=== PATIENT | female | born 1970 | race Caucasian/White ===

== ENCOUNTER 2017-03-23 19:11 | Emergency (ER) | payer SELFPAY ==
[~2017-03-23] VITALS: Ht 165.1 cm; Wt 73.0 kg
[~2017-03-23 19:11] MED LIST: CEPH-460 PO; PRED20 PO; VENTAER INH
[2017-03-23 19:20] VITALS: BP 178/115; PULSE 85; RESP 16; TEMP 98.3; O2SAT 96
--- NOTE | 2017-03-23 19:51 | PD ---
Physical Exam Date Seen by Provider: Mar 23, 2017 Time Seen by Provider: 19:49 Narrative 46 yo female here for evaluation of leg pain. 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 has bumps in legs and arms. Possibly exposed to TB per patient, she found out this today. Vitals stable in triage. Awaiting bed placement Data Data Last Documented VS Vital Signs Date Time Temp Pulse Resp B/P (MAP) Pulse Ox O2 Delivery O2 Flow Rate FiO2 03/23/17 19:20 98.3 85 16 178/115 (136) 96 Room Air [facility] Medical Record Reviewed: Yes Supervised Visit with BIBI: No Jose Guadalupe Huertas Mar 23, 2017 19:51
[2017-03-23] MEDS ORDERED: BACT800T5 PO (23:23)
[2017-03-23] MEDS ORDERED: CEPH-460 PO (23:23)
--- NOTE | 2017-03-23 23:24 | PD ---
HPI Chief Complaint: Skin Problem Time Seen by Provider: 23:17 Travel History International Travel<30 days: No Contact w/Intl Traveler<30days: No Traveled to known affect area: No History of Present Illness HPI 46-year-old female presents to emergency department for evaluation of multiple scabbed lesions on her extremities. Patient states she first noticed these couple weeks ago with pain insect bit her foot. She then developed more wounds. She began to scratch them. She feels as though she may have a skin infection. She denies any new contacts. No recent illnesses, fever, chills. She also believes she may been exposed to TB. She used a telephone today and following her phone conversation, the man who use to prior to her told her that he has had TB. She denies a cough or chest congestion. No hemoptysis. No weight loss. No night sweats. No other symptoms to report. PFSH Past Medical History Asthma: Yes Cardiovascular Problems: Yes (HTN) Diminished Hearing: No Hepatitis: Yes (Hep C) Hiatal Hernia: Yes Respiratory: Yes (Asthma) Immunizations Current: No Tetanus Vaccination: Unknown Influenza Vaccination: No ?: Not LMP: 03/05/17 Tubal Ligation: Yes Past Surgical History Abdominal Surgery: Yes (hernia repair) Social History Alcohol Use: Yes Tobacco Use: Yes (pack a day ) Substance Use: Yes (Pt denied any drug use, only etoh) Allergies-Medications (Allergen,Severity, Reaction): Coded Allergies: No Known Allergies (Unverified , 06/27/16) Reported Meds & Prescriptions Reported Meds & Active Scripts Active Keflex (Cephalexin) 500 Mg Cap 500 Mg PO Q6H 5 Days Bactrim DS (Sulfamethoxazole-Trimethoprim) 800-160 Mg Tab 1 Tab PO BID Ventolin Hfa 18 GM Inh (Albuterol Sulfate) 90 Mcg/Act Aer 2 Puff INH Q4H PRN Keflex (Cephalexin) 500 Mg Cap 500 Mg PO Q6H 7 Days Prednisone 20 Mg Tab 40 Mg PO DAILY 5 Days Review of Systems Except as stated in HPI: all other systems reviewed are Neg Physical Exam Narrative GENERAL: Unkempt female patient, in no acute distress SKIN: Focused skin assessment warm/dry. Multiple centimeter and subcentimeter scabbed lesions on the lower extremity and arms. The patient does have a couple on her face. HEAD: Atraumatic. Normocephalic. EYES: Pupils equal and round. No scleral icterus. No injection or drainage. ENT: No nasal bleeding or discharge. Mucous membranes pink and moist. NECK: Trachea midline. No JVD. CARDIOVASCULAR: Regular rate and rhythm. No murmur appreciated. RESPIRATORY: No accessory muscle use. Clear to auscultation. Breath sounds equal bilaterally. GASTROINTESTINAL: Abdomen soft, non-tender, nondistended. Hepatic and splenic margins not palpable. MUSCULOSKELETAL: No obvious deformities. No clubbing. No cyanosis. No edema. NEUROLOGICAL: Awake and alert. No obvious cranial nerve deficits. Motor grossly within normal limits. Normal speech. Data Data Last Documented VS Vital Signs Date Time Temp Pulse Resp B/P (MAP) Pulse Ox O2 Delivery O2 Flow Rate FiO2 03/23/17 23:32 03/23/17 19:20 98.3 85 16 96 Room Air [facility] Medical Decision Making Medical Screen Exam Complete: Yes Emergency Medical Condition: Yes Medical Record Reviewed: Yes Differential Diagnosis Superficial skin infection versus can lesions versus contact dermatitis versus folliculitis versus insect bites( Narrative Course 46 year-old female presents to emergency department for evaluation. Patient appears without distress. She does have multiple scabbed lesions, consistent with superficial skin infection. Patient be started on oral antibiotic. She is counseled on care. I have advised follow-up with the [facility] department if she does feel she has been exposed to TB. She is asymptomatic at this time and her possible exposure was today. Patient verbalizes understanding. She'll be discharged at this time. Diagnosis Primary Impression: Skin lesion, infected Additional Impressions: Skin lesions Skin lesion, superficial Referrals: Primary Care Physician Patient Instructions: Acute Wound Care (DC), General Instructions Additional Instructions: Avoid scratching or picking the lesions Follow-up with a primary care provider Keep the areas clean Return immediately to the emergency department with any acute worsening of symptoms Follow up with the health department for ppd if you think you have been exposed to TB Med/Other Pt SpecificInfo: Prescription(s) given Scripts Cephalexin (Keflex) 500 Mg Cap 500 MG PO Q6H for Infection for 5 Days, CAP 0 Refills Prov: Juliana Justin 03/23/17 Sulfamethoxazole-Trimethoprim (Bactrim DS) 800-160 Mg Tab 1 TAB PO BID for Infection, #20 TAB 0 Refills Prov: Juliana Justin 03/23/17 Disposition: 01 DISCHARGE HOME Condition: Stable Juliana Justin Mar 23, 2017 23:24
== END 2017-03-23 23:46 | disposition home or self-care (01) ==
LOC: NEPD 19:11
DX: L98.9 Disorder of the skin and subcutaneous tissue, unspecified (principal); J45.909 Unspecified asthma, uncomplicated; I10 Essential (primary) hypertension; F17.200 Nicotine dependence, unspecified, uncomplicated; Z86.19 Personal history of other infectious and parasitic diseases; Z79.899 Other long term (current) drug therapy
CPT/HCPCS: 99284

== ENCOUNTER 2017-10-17 11:51 | Emergency (ER) | payer OTHER ==
[~2017-10-17 11:51] MED LIST changes: +BACT800T5 PO
[2017-10-17 12:31] VITALS: BP 226/118; PULSE 80; RESP 20; TEMP 98.4; O2SAT 98; O2SAT 99
[2017-10-17] MEDS ORDERED: LISI40TA PO ×2 (14:12→14:33)
--- NOTE | 2017-10-17 14:15 | PD ---
HPI Chief Complaint: Skin Problem Time Seen by Provider: 14:11 Travel History International Travel<30 days: No Contact w/Intl Traveler<30days: No Traveled to known affect area: No History of Present Illness HPI 47-year-old female presents to the emergency department with complaint of scattered, scabbed rash to her scalp, left ear, right arm, chest 4 days. Says it itches, lang and her left ear is swollen and oozing. Says she is allergic to hair dye and last used it 3 weeks ago, but does not think that this rash is related to using hair dye. Denies new exposures to lotions, soaps, detergents, shampoos, perfumes, environmental exposures. Denies fever, vomiting. No others with similar symptoms. Has tried spray Lotrimin cream Lotrimin, and other [id number] creams with minimal relief of symptoms. Patient's blood pressure is elevated in the ER. She is requesting refill on her lisinopril 40 mg daily. Says she has been out for a couple weeks. Denies chest pain, shortness of breath, change in vision, syncope, vomiting. Also requesting a refill on her albuterol for her asthma. No primary care provider. Allergies to hair dye and bees. History of hypertension, polycystic kidney, hepatitis C, asthma. Reports history of MRSA. Has no other medical complaints. No other modifying factors or associated signs and symptoms. PFSH Past Medical History Asthma: Yes Cardiovascular Problems: Yes (HTN) Diminished Hearing: No Hepatitis: Yes (Hep C) Hiatal Hernia: Yes Hypertension: Yes Respiratory: Yes (Asthma) Immunizations Current: No Tetanus Vaccination: Unknown Influenza Vaccination: No ?: Not Tubal Ligation: Yes Past Surgical History Abdominal Surgery: Yes (hernia repair) Social History Alcohol Use: Yes (occasionally) Tobacco Use: Yes (pack every 3 days) Substance Use: No (Pt denied any drug use, only etoh) Allergies-Medications (Allergen,Severity, Reaction): Coded Allergies: No Known Allergies (Unverified Adverse Reaction, Unknown, 10/17/17) Reported Meds & Prescriptions Reported Meds & Active Scripts Active Lisinopril 40 Mg Tab 40 Mg PO DAILY Ventolin Hfa 18 GM Inh (Albuterol Sulfate) 90 Mcg/Act Aer 2 Puff INH Q4-6H PRN Clindamycin (Clindamycin HCl) 150 Mg Cap 450 Mg PO Q6H 10 Days Deltasone (Prednisone) 20 Mg Tab 40 Mg PO DAILY 4 Days start 10/18/2017 Ventolin Hfa 18 GM Inh (Albuterol Sulfate) 90 Mcg/Act Aer 2 Puff INH Q4H PRN Reported Lisinopril 40 Mg Tab 40 Mg PO DAILY Review of Systems Except as stated in HPI: all other systems reviewed are Neg Physical Exam Narrative GENERAL: Well-nourished, well-developed feet patient, in no acute distress; disheveled SKIN: Warm and dry. Generalized erythremic pimple-like rash to to left ear and around left ear, scalp, right upper extremity, chest; some areas appear excoriated. Left ear is erythematous, edematous and with purulent drainage noted. HEAD: Atraumatic. Normocephalic. EYES: Pupils equal and round. No scleral icterus. No injection or drainage. ENT: Mucosa pink and moist. Airway patent. NECK: Trachea midline. CARDIOVASCULAR: Regular rate and rhythm. No murmur appreciated. RESPIRATORY: No accessory muscle use. Breath sounds clear and equal bilaterally. No retractions or tachypnea. GASTROINTESTINAL: Abdomen soft, non-tender, nondistended. Positive bowel sounds. No hepato-splenomegaly, or palpable masses. No guarding. MUSCULOSKELETAL: No obvious deformities. No clubbing. No cyanosis. No edema. NEUROLOGICAL: Awake and alert. Oriented 3. No obvious cranial nerve deficits. Motor grossly within normal limits. Normal speech. PSYCHIATRIC: Appropriate mood and affect; insight and judgment normal. Data Data Last Documented VS Vital Signs Date Time Temp Pulse Resp B/P (MAP) Pulse Ox O2 Delivery O2 Flow Rate FiO2 10/17/17 15:16 177/105 (129) 10/17/17 12:31 98.4 80 20 98 Orders Orders Wound Culture And Gram Stain (10/17/17 14:25) Diphenhydramine (Benadryl) (10/17/17 14:30) Lisinopril (Prinivil) (10/18/17 09:00) Lisinopril (Prinivil) (10/17/17 14:30) Prednisone (Deltasone) (10/17/17 14:30) Clindamycin (Cleocin) (10/17/17 14:30) Ed Discharge Order (10/17/17 15:20) [facility] Medical Decision Making Medical Screen Exam Complete: Yes Emergency Medical Condition: Yes Medical Record Reviewed: Yes Differential Diagnosis Nonspecific rash and skin eruption, contact dermatitis, hives, cellulitis of left ear, scabies, bedbugs, MRSA, staph infection Narrative Course 47-year-old female with rash and nonspecific skin eruption and cellulitis of her left ear. She is afebrile and nontoxic-appearing. Blood pressure is elevated in the ER. She has been out of her lisinopril for a few weeks. She is also requesting a refill on her albuterol inhaler for her asthma. Clindamycin, Deltasone, Benadryl, lisinopril ordered. 1520: Blood pressure recheck 177/105. Lisinopril, Ventolin inhaler, Deltasone, clindamycin prescribed for home. Instructed patient to follow-up with apparatus operator. Instructed patient to follow up with primary care provider. Patient verbalizes understanding and agreement with treatment plan. Patient is medically cleared and stable for discharge. Discussed reasons to return to the emergency department. Patient agrees with treatment plan. The patients vital signs are stable and the patient is stable for outpatient follow-up and treatment. Patient discharged home, stable and in no acute distress. Diagnosis Primary Impression: Rash and nonspecific skin eruption Additional Impressions: Cellulitis of left ear Medication refill High blood pressure Qualified Codes: I10 - Essential (primary) hypertension Referrals: Research Editor Primary Care Physician Patient Instructions: Acute Rash (ED), Cellulitis (ED), General Instructions Additional Instructions: Antibiotics as prescribed and complete full course Take oral steroids as prescribed [id number] topicals to reduce itch Benadryl as directed and as needed to reduce itch Follow-up with your primary care provider Return to the emergency department immediately with worsening of symptoms Med/Other Pt SpecificInfo: Prescription(s) given Scripts Lisinopril (Lisinopril) 40 Mg Tab 40 MG PO DAILY for Blood Pressure Management, #30 TAB 0 Refills Prov: Sherita Franco PIECE CUTTER 10/17/17 Albuterol 18 GM Inh (Ventolin Hfa 18 GM Inh) 90 Mcg/Act Aer 2 PUFF INH Q4-6H Y for SOB/WHEEZING, #1 INHALER 0 Refills Prov: Sherita Franco PIECE CUTTER 10/17/17 Clindamycin (Clindamycin) 150 Mg Cap 450 MG PO Q6H for Infection for 10 Days, #120 CAP 0 Refills Prov: Sherita Franco 10/17/17 Prednisone (Deltasone) 20 Mg Tab 40 MG PO DAILY for 4 Days, #8 TAB 0 Refills start 10/18/2017 Prov: Sherita Franco 10/17/17 Disposition: 01 DISCHARGE HOME Condition: Stable Sherita Franco Oct 17, 2017 14:15
[2017-10-17] MEDS ORDERED: diphenhydrAMINE HCL 50 MG CAP PO ONE (14:30)
[2017-10-17] MEDS ORDERED: predniSONE 20 MG TAB PO ONE (14:30)
[2017-10-17] MEDS ORDERED: CLINDAMYCIN 150 MG CAP PO SCH (14:30)
[2017-10-17] MEDS ORDERED: LISINOPRIL 20 MG TAB PO SCH (14:30)
[2017-10-17] MEDS ORDERED: VENTAER INH (14:33)
[2017-10-17] MEDS ORDERED: CLIN150C14 PO (14:33)
[2017-10-17] MEDS ORDERED: PRED-503 PO (14:33)
[2017-10-17 15:16] VITALS: BP 177/105
[2017-10-18] MEDS ORDERED: LISINOPRIL 20 MG TAB PO SCH (09:00)
== END 2017-10-17 15:39 | disposition home or self-care (01) ==
LOC: NED 11:51 → NEPD 15:39
DX: H60.12 Cellulitis of left external ear (principal); B95.61 Methicillin susceptible Staphylococcus aureus infection as the cause of diseases classified elsewhere; I10 Essential (primary) hypertension; J45.909 Unspecified asthma, uncomplicated; B19.20 Unspecified viral hepatitis C without hepatic coma; F17.200 Nicotine dependence, unspecified, uncomplicated; Z76.0 Encounter for issue of repeat prescription
CPT/HCPCS: 86403; 87070; 87077; 87186; 99283; J7512; Q0163